=== PATIENT | female | born 1965 ===

== ENCOUNTER 2017-07-10 08:52 | Observation (INO) | payer OTHER ==
[2017-07-10 09:02] VITALS: BMI 25.0
[2017-07-10] MEDS ORDERED: Sodium Chloride 0.9% 1,000 ML IV STA (09:22)
--- NOTE | 2017-07-10 09:24 | ED PDOC ---
HPI: Abdomen Time Seen by Provider: 07/10/17 09:07 Chief Complaint (Nursing): Dizziness/Lightheaded Chief Complaint (Provider): Abdominal Pain History Per: Patient History/Exam Limitations: no limitations Onset/Duration Of Symptoms: Hrs Additional Complaint(s): 52 year old female present to the ED complaining of constant abdominal pain associated with nausea since last night. Patient reports of pain radiating to right flank and right lower abdominal pain. Denies fever, vomiting, diarrhea, chest pain, shortness of breath, and genitourinary symptoms. Past Medical History Reviewed: Historical Data, Nursing Documentation, Vital Signs Vital Signs: Last Vital Signs Temp 98 F 07/10/17 09:01 Pulse 65 07/10/17 09:01 Resp BP 139/75 07/10/17 09:01 Pulse Ox 100 07/10/17 11:21 - Medical History PMH: No Chronic Diseases - Surgical History Surgical History: - Family History Family History: States: Unknown Family Hx - Social History Current smoker - smoking cessation education provided: No Alcohol: None Drugs: Denies - Immunization History Hx Tetanus Toxoid Vaccination: No Hx Influenza Vaccination: No Hx Pneumococcal Vaccination: No - Home Medications Home Medications: Ambulatory Orders Medication Instructions Recorded Ibuprofen [Motrin] 600 mg PO Q6 #30 tab 06/25/14 diaZEpam [Valium] 5 mg PO Q8 #12 tab 06/25/14 - Allergies Allergies/Adverse Reactions: Allergies Allergy/AdvReac Type Severity Reaction Status Date / Time No Known Allergies Allergy Unverified 06/25/14 20:56 Review of Systems ROS Statement: Except As Marked, All Systems Reviewed And Found Negative Constitutional: Negative for: Fever Cardiovascular: Negative for: Chest Pain Respiratory: Negative for: Shortness of Breath Gastrointestinal: Positive for: Nausea, Abdominal Pain. Negative for: Vomiting , Diarrhea Genitourinary Female: Negative for: Dysuria, Frequency, Incontinence, Hematuria , Vaginal Discharge, Vaginal Bleeding, Pelvic Pain, Rash Physical Exam - Reviewed Nursing Documentation Reviewed: Yes Vital Signs Reviewed: Yes - Physical Exam Appears: Positive for: Non-toxic, In Acute Distress (moderate painful distress) Head Exam: Positive for: ATRAUMATIC, NORMOCEPHALIC Skin: Positive for: Normal Color, Warm, Dry Eye Exam: Positive for: Normal appearance, EOMI, PERRL ENT: Positive for: Normal ENT Inspection Neck: Positive for: Normal, Painless ROM, Supple Cardiovascular/Chest: Positive for: Regular Rate, Rhythm. Negative for: Murmur Respiratory: Positive for: Normal Breath Sounds. Negative for: Respiratory Distress Gastrointestinal/Abdominal: Positive for: Normal Exam, Soft, Tenderness ( epigastric tenderness ) Back: Positive for: Normal Inspection. Negative for: L CVA Tenderness, R CVA Tenderness, Vertebral Tenderness Extremity: Positive for: Normal ROM. Negative for: Pedal Edema, Deformity Neurologic/Psych: Positive for: Alert, Oriented. Negative for: Motor/Sensory Deficits - Laboratory Results Result Diagrams: 07/10/17 09:30 07/10/17 09:30 - ECG Interpretation Of ECG: NSR @ 67, no ST-T changes. O2 Sat by Pulse Oximetry: 100 (RA) Pulse Ox Interpretation: Normal Medical Decision Making Medical Decision Making: Time: 924 Impression: Epigastric Pain Differential include but are not limited to Gastritis, colitis, kidney stone, etc. Plan: -- CT Abd & Pelvis /o contrast -- EKG -- CMP -- Lipase -- ED Urine Dipstick -- CBC with differentials -- PTT -- Prothrombin Time -- Glucose, POC -- Morphine 2 mg IV -- Sodium Chloride IV 1000 mls/hr -- Zofram 4 mg PO -- Urinalysis Time: 1102 -- Case discussed with director surgical Time: 1105 ABD/PELVIS CT RESULTS FINDINGS: LOWER THORAX: No evidence of acute pathology. LIVER: Unremarkable. No gross lesion or ductal dilatation. GALLBLADDER AND BILE DUCTS: Unremarkable. PANCREAS: Unremarkable. No gross lesion or ductal dilatation. SPLEEN: Unremarkable. ADRENALS: Unremarkable. No mass. KIDNEYS AND URETERS: Unremarkable. No hydronephrosis. No solid mass. VASCULATURE: Unremarkable. No aortic aneurysm. BOWEL: Colonic diverticulosis are noted without evidence of diverticulitis. . No obstruction. No gross mural thickening. APPENDIX: The appendix is enlarged demonstrate diffuse wall thickening surrounding with inflammatory changes and trace fluid consistent with acute appendicitis the appendix is noted at high position adjacent to the inferior pole of the right kidney. There is no evidence of discrete abscess formation. PERITONEUM: No evidence of ascites or free air. LYMPH NODES: Unremarkable. No enlarged lymph nodes. BLADDER: Mild urinary bladder wall thickening is noted. REPRODUCTIVE: Unremarkable. BONES: No acute fracture. OTHER FINDINGS: None. IMPRESSION: Findings consistent with acute appendicitis. No evidence of abscess formation or free air. No evidence of nephrolithiasis or hydronephrosis. Time: 1110 -- Patient will be brought to OR immediately for appendectomy. Scribe Attestation: Documented by Darryl Reyez, acting as a scribe for Dr. Glenda Mcclelland MD. Provider Scribe Attestation: All medical record entries made by the Scribe were at my direction and personally dictated by me. I have reviewed the chart and agree that the record accurately reflects my personal performance of the history, physical exam, medical decision making, and the department course for this patient. I have also personally directed, reviewed, and agree with the discharge instructions and disposition. Disposition - Clinical Impression Clinical Impression: Appendicitis - Patient ED Disposition Is Patient to be Admitted: Yes - Disposition Disposition Time: 11:02 Condition: STABLE Forms: [employer] ([employer]) - Pt Status Changed To: Hospital Disposition Of: Inpatient - Admit Certification Admit to Inpatient:: After my assessment, the patient will require hospitalization for at least two midnights. This is because of the severity of symptoms shown, intensity of services needed, and/or the medical risk in this patient being treated as an outpatient. - POA Present On Arrival: None
[2017-07-10 09:49] LABS: BASO # 0.1 K/uL (0.0-0.2); BASO % 0.6 % (0.0-2.0); EOS % 0.3 % (0.0-4.0); HEMOGLOBIN 13.4 g/dL (12.0-16.0); LYMPH # 2.4 K/uL (1.0-4.3); LYMPH % 20.6 % (20.0-40.0); MEAN CELL VOLUME 89.5 fl (81.0-99.0); MEAN CORPUSCULAR HEMOGLOBIN 30.2 pg (27.0-31.0); MEAN CORPUSCULAR HGB CONC 33.8 g/dL (33.0-37.0); MEAN PLATELET VOLUME 8.3 fl (7.2-11.7); MONO # 0.6 K/uL (0.0-0.8); MONO % 5.2 % (0.0-10.0); NEUT # 8.6 K/uL (1.8-7.0); NEUT % 73.3 % (50.0-75.0); NRBC % 0.1 % (0.0-0.0); RBC 4.44 Mil/uL (3.80-5.20); RED CELL DISTRIBUTION WIDTH 13.7 % (11.5-14.5); WHITE BLOOD COUNT 11.7 K/uL (4.8-10.8)
[2017-07-10 09:56] LABS: ALB/GLOB RATIO 1.2 (1.0-2.1); ALBUMIN 4.3 g/dL (3.5-5.0); ALT/SGPT 31 U/L (9-52); AST/SGOT 30 U/L (14-36); BLOOD UREA NITROGEN 14 mg/dl (7-17); CALCIUM 9.9 mg/dL (8.4-10.2); GFR AFRICAN-AMERICAN > 60; GFR NON-AFRICAN AMERICAN > 60; LIPASE 52 U/L (23-300)
[2017-07-10 10:14] LABS: PARTIAL THROMBOPLASTIN TIME 34.3 Seconds (25.6-37.1); PROTHROMBIN TIME 10.5 Seconds (9.8-13.1)
[2017-07-10] MEDS ORDERED: Belladonna-Phenobarbital PO STA (10:28)
[2017-07-10] MEDS ORDERED: Alum-Mag Hydrox-Simethicone Susp (30 mL) PO STA (10:28)
[2017-07-10 10:59] LABS: SQUAMOUS EPITHIAL 1 /hpf (0-5); URINE BILIRUBIN NEGATIVE (NEGATIVE); URINE BLOOD SMALL (NEGATIVE); URINE CLARITY CLEAR (Clear); URINE COLOR STRAW (YELLOW); URINE GLUCOSE (UA) NEG (Normal); URINE LEUKOCYTE ESTERASE NEG Leu/uL (Negative); URINE PROTEIN NEGATIVE (NEGATIVE); URINE UROBILINOGEN 0.2-1.0 mg/dL (0.2-1.0)
[2017-07-10] MEDS ORDERED: Piperacillin/Tazobact 4.5 GM in Sodium Chloride 0.9% 100 ML IVPB STA (11:01)
--- NOTE | 2017-07-10 11:06 | CT ---
PROCEDURE: CT Abdomen and Pelvis without intravenous contrast HISTORY: Epigastric, R flank pain COMPARISON: Comparison is made with the previous study dated 04/29/2012 TECHNIQUE: Axial and reformatted coronal and sagittal CT images of the abdomen and pelvis were obtained without IV or oral contrast administration.. Contrast dose: 0 IV contra Radiation dose: Total exam DLP = 574.12 mGy-cm. This CT exam was performed using one or more of the following dose reduction techniques: Automated exposure control, adjustment of the mA and/or kV according to patient size, and/or use of iterative reconstruction technique. FINDINGS: LOWER THORAX: No evidence of acute pathology. LIVER: Unremarkable. No gross lesion or ductal dilatation. GALLBLADDER AND BILE DUCTS: Unremarkable. PANCREAS: Unremarkable. No gross lesion or ductal dilatation. SPLEEN: Unremarkable. ADRENALS: Unremarkable. No mass. KIDNEYS AND URETERS: Unremarkable. No hydronephrosis. No solid mass. VASCULATURE: Unremarkable. No aortic aneurysm. BOWEL: Colonic diverticulosis are noted without evidence of diverticulitis. . No obstruction. No gross mural thickening. APPENDIX: The appendix is enlarged demonstrate diffuse wall thickening surrounding with inflammatory changes and trace fluid consistent with acute appendicitis the appendix is noted at high position adjacent to the inferior pole of the right kidney. There is no evidence of discrete abscess formation. PERITONEUM: No evidence of ascites or free air. LYMPH NODES: Unremarkable. No enlarged lymph nodes. BLADDER: Mild urinary bladder wall thickening is noted. REPRODUCTIVE: Unremarkable. BONES: No acute fracture. OTHER FINDINGS: None. IMPRESSION: Findings consistent with acute appendicitis. No evidence of abscess formation or free air. No evidence of nephrolithiasis or hydronephrosis.
--- NOTE | 2017-07-10 11:27 | CP.PCM.CON ---
History of Present Illness - History of Present Illness History of Present Illness: Surgery- Dr. Patino 52F w/ no significant pmhx presents to [facility] with sharp epigastric abdominal pain localized to RLQ that started on 2 days ago. Associated nausea, no vomiting , and no bowel movements. Patient has never had similar pain before. Denies recent sick contacts or foreign travel. Last meal yesterday evening, with milk and water this morning. Denies: Fevers, chills chest pain, shortness of breath, changes in urinary habits PMH: Denies PSH: x2 ALL: NKDA Socialhx: former tobacco use, quit 5+ years ago, denies EOTH, recreational drug use FH: non-contributory 12pt ROS conducted, negative otherwise noted above Review of Systems - Review of Systems All systems: reviewed and no additional remarkable complaints except - Constitutional Constitutional: As Per HPI Past Patient History - Past Social History Alcohol: None Drugs: Denies - PSYCHIATRIC Hx Substance Use: No - ANESTHESIA Hx Anesthesia: No Meds Allergies/Adverse Reactions: Allergies Allergy/AdvReac Type Severity Reaction Status Date / Time No Known Allergies Allergy Unverified 06/25/14 20:56 - Medications Medications: Current Medications Piperacillin Sod/Tazobactam (Sod 4.5 gm/ Sodium Chloride) 100 mls @ 100 mls/hr IVPB STAT STA PRN Reason: Protocol Stop: 07/10/17 12:00 Last Admin: 07/10/17 11:17 Dose: 100 mls/hr Physical Exam - Constitutional Appears: Non-toxic, No Acute Distress - Head Exam Head Exam: ATRAUMATIC - Eye Exam Eye Exam: EOMI. absent: Scleral icterus - ENT Exam ENT Exam: Mucous Membranes Moist - Respiratory Exam Respiratory Exam: NORMAL BREATHING PATTERN. absent: Accessory Muscle Use, Respiratory Distress - Cardiovascular Exam Cardiovascular Exam: +S1, +S2. absent: Bradycardia, Tachycardia - GI/Abdominal Exam GI & Abdominal Exam: Guarding, Rebound, Soft, Tenderness (RLQ). absent: Firm, Hernia, Rigid - Neurological Exam Neurological exam: Alert, Oriented x3 - Psychiatric Exam Psychiatric exam: Normal Affect - Skin Skin Exam: Intact, Warm Results - Vital Signs Recent Vital Signs: Last Vital Signs Temp 98 F 07/10/17 09:01 Pulse 65 07/10/17 09:01 Resp BP 139/75 07/10/17 09:01 Pulse Ox 100 07/10/17 11:23 - Labs Result Diagrams: 07/10/17 09:30 07/10/17 09:30 Labs: Laboratory Results - last 24 hr 07/10/17 07/10/17 07/10/17 09:15 09:30 09:30 WBC 11.7 H RBC 4.44 Hgb 13.4 Hct 39.8 MCV 89.5 MCH 30.2 MCHC 33.8 RDW 13.7 Plt Count 257 MPV 8.3 Neut % (Auto) 73.3 Lymph % (Auto) 20.6 [place] % (Auto) 5.2 Eos % (Auto) 0.3 Baso % (Auto) 0.6 Neut # (Auto) 8.6 H Lymph # (Auto) 2.4 [place] # (Auto) 0.6 Eos # (Auto) 0.0 Baso # (Auto) 0.1 PT INR APTT Sodium 138 Potassium 4.0 Chloride 100 Carbon Dioxide 22 Anion Gap 20 BUN 14 Creatinine 0.7 Est GFR ( Amer) > 60 Est GFR (Non-Af Amer) > 60 POC Glucose (mg/dL) 140 H Random Glucose 151 H Calcium 9.9 Total Bilirubin 0.6 AST 30 ALT 31 Alkaline Phosphatase 97 Total Protein 8.0 Albumin 4.3 Globulin 3.7 Albumin/Globulin Ratio 1.2 Lipase 52 Urine Color Urine Clarity Urine pH Ur Specific [place] Urine Protein Urine Glucose (UA) Urine Ketones Urine Blood Urine Nitrate Urine Bilirubin Urine Urobilinogen Ur Leukocyte Esterase Urine Microscopic WBC Ur Squamous Epith Cells 07/10/17 07/10/17 09:30 10:30 WBC RBC Hgb Hct MCV MCH MCHC RDW Plt Count MPV Neut % (Auto) Lymph % (Auto) [place] % (Auto) Eos % (Auto) Baso % (Auto) Neut # (Auto) Lymph # (Auto) [place] # (Auto) Eos # (Auto) Baso # (Auto) PT 10.5 INR 1.0 APTT 34.3 Sodium Potassium Chloride Carbon Dioxide Anion Gap BUN Creatinine Est GFR ( Amer) Est GFR (Non-Af Amer) POC Glucose (mg/dL) Random Glucose Calcium Total Bilirubin AST ALT Alkaline Phosphatase Total Protein Albumin Globulin Albumin/Globulin Ratio Lipase Urine Color Straw Urine Clarity Clear Urine pH 8.0 Ur Specific [place] 1.006 Urine Protein Negative Urine Glucose (UA) Neg Urine Ketones Negative Urine Blood Small Urine Nitrate Negative Urine Bilirubin Negative Urine Urobilinogen 0.2-1.0 Ur Leukocyte Esterase Neg Urine Microscopic WBC < 1 Ur Squamous Epith Cells 1 Assessment & Plan - Assessment and Plan (Free Text) Assessment: 52F w/ acute appendicitis Plan: NPO IVF/Abx anti-emetic and pain control PRN plan for appendectomy today discussed w/ Dr. Patino surgical attending [facility] PGY1
[2017-07-10] MEDS ORDERED: Sodium Chloride 0.9% 1,000 ML IV SCH (11:30)
--- NOTE | 2017-07-10 11:32 | CP.PCM.HP ---
History of Present Illness - History of Present Illness History of Present Illness: 52 yo female with no significant PMH complained of persistent abdominal pain associated with nausea since 3 days ago. Abdominal pain, felt more over the epigastric region, waxed and wane, but becoming more intense and constant lately. Denied fever, vomiting or diarrhea. Also denied dysuria or low back pain. Present on Admission - Present on Admission Any Indicators Present on Admission: No History of DVT/PE: No History of Uncontrolled Diabetes: No Urinary Catheter: No Decubitus Ulcer Present: No Review of Systems - Review of Systems All systems: reviewed and no additional remarkable complaints except (aside from those mentioned above, 12 point system review were negative by me) Past Patient History - Tetanus Immunizations Tetanus Immunization: Unknown - Past Medical History & Family History Past Medical History?: No Past Family History: Reviewed and not pertinent - Past Social History Smoking Status: Former Smoker Chewing Tobacco Use: No Cigar Use: No Alcohol: None Drugs: Denies Home Situation {Lives}: With Family - CARDIAC Hx Cardiac Disorders: No - PULMONARY Hx Respiratory Disorders: No - NEUROLOGICAL Hx Neurological Disorder: No - HEENT Hx HEENT Problems: No - RENAL Hx Chronic Kidney Disease: No - ENDOCRINE/METABOLIC Hx Endocrine Disorders: No - HEMATOLOGICAL/ONCOLOGICAL Hx Blood Disorders: No - INTEGUMENTARY Hx Dermatological Problems: No - MUSCULOSKELETAL/RHEUMATOLOGICAL Hx Musculoskeletal Disorders: No - GASTROINTESTINAL Hx Gastrointestinal Disorders: No - GENITOURINARY/GYNECOLOGICAL Hx Genitourinary Disorders: No - PSYCHIATRIC Hx Psychophysiologic Disorder: No Hx Substance Use: No - SURGICAL HISTORY Hx Surgeries: Yes Hx Section: Yes - ANESTHESIA Hx Anesthesia: No Meds Allergies/Adverse Reactions: Allergies Allergy/AdvReac Type Severity Reaction Status Date / Time No Known Allergies Allergy Unverified 06/25/14 20:56 Physical Exam - Constitutional Appears: No Acute Distress - Head Exam Head Exam: ATRAUMATIC - Eye Exam Eye Exam: absent: Scleral icterus - ENT Exam ENT Exam: Mucous Membranes Moist - Neck Exam Neck exam: Negative for: Meningismus - Respiratory Exam Respiratory Exam: absent: Rales, Rhonchi, Wheezes, Respiratory Distress - Cardiovascular Exam Cardiovascular Exam: REGULAR RHYTHM, +S1, +S2 - GI/Abdominal Exam GI & Abdominal Exam: Soft, Tenderness (tenderness over epigastric region on palpation). absent: Guarding, Rebound, Rigid - Rectal Exam Rectal Exam: Deferred - Extremities Exam Extremities exam: Negative for: calf tenderness, pedal edema - Back Exam Back exam: absent: tenderness - Neurological Exam Neurological exam: Alert, Oriented x3 - Psychiatric Exam Psychiatric exam: Normal Affect - Skin Skin Exam: Dry, Intact Results - Vital Signs Recent Vital Signs: Last Vital Signs Temp 98 F 07/10/17 09:01 Pulse 65 07/10/17 09:01 Resp BP 139/75 07/10/17 09:01 Pulse Ox 100 07/10/17 11:23 - Labs Result Diagrams: 07/10/17 09:30 07/10/17 09:30 Labs: Laboratory Results - last 24 hr 07/10/17 07/10/17 07/10/17 09:15 09:30 09:30 WBC 11.7 H RBC 4.44 Hgb 13.4 Hct 39.8 MCV 89.5 MCH 30.2 MCHC 33.8 RDW 13.7 Plt Count 257 MPV 8.3 Neut % (Auto) 73.3 Lymph % (Auto) 20.6 [place] % (Auto) 5.2 Eos % (Auto) 0.3 Baso % (Auto) 0.6 Neut # (Auto) 8.6 H Lymph # (Auto) 2.4 [place] # (Auto) 0.6 Eos # (Auto) 0.0 Baso # (Auto) 0.1 PT INR APTT Sodium 138 Potassium 4.0 Chloride 100 Carbon Dioxide 22 Anion Gap 20 BUN 14 Creatinine 0.7 Est GFR ( Amer) > 60 Est GFR (Non-Af Amer) > 60 POC Glucose (mg/dL) 140 H Random Glucose 151 H Calcium 9.9 Total Bilirubin 0.6 AST 30 ALT 31 Alkaline Phosphatase 97 Total Protein 8.0 Albumin 4.3 Globulin 3.7 Albumin/Globulin Ratio 1.2 Lipase 52 Urine Color Urine Clarity Urine pH Ur Specific [place] Urine Protein Urine Glucose (UA) Urine Ketones Urine Blood Urine Nitrate Urine Bilirubin Urine Urobilinogen Ur Leukocyte Esterase Urine Microscopic WBC Ur Squamous Epith Cells 07/10/17 07/10/17 09:30 10:30 WBC RBC Hgb Hct MCV MCH MCHC RDW Plt Count MPV Neut % (Auto) Lymph % (Auto) [place] % (Auto) Eos % (Auto) Baso % (Auto) Neut # (Auto) Lymph # (Auto) [place] # (Auto) Eos # (Auto) Baso # (Auto) PT 10.5 INR 1.0 APTT 34.3 Sodium Potassium Chloride Carbon Dioxide Anion Gap BUN Creatinine Est GFR ( Amer) Est GFR (Non-Af Amer) POC Glucose (mg/dL) Random Glucose Calcium Total Bilirubin AST ALT Alkaline Phosphatase Total Protein Albumin Globulin Albumin/Globulin Ratio Lipase Urine Color Straw Urine Clarity Clear Urine pH 8.0 Ur Specific [place] 1.006 Urine Protein Negative Urine Glucose (UA) Neg Urine Ketones Negative Urine Blood Small Urine Nitrate Negative Urine Bilirubin Negative Urine Urobilinogen 0.2-1.0 Ur Leukocyte Esterase Neg Urine Microscopic WBC < 1 Ur Squamous Epith Cells 1 Assessment & Plan - Assessment and Plan (Free Text) Assessment: 52 yo female with no significant PMH complained of persistent abdominal pain associated with nausea since 3 days ago. Abdominal pain, felt more over the epigastric region, waxed and wane, but becoming more intense and constant lately. Denied fever, vomiting or diarrhea. Also denied dysuria or low back pain. 1. Acute Appendicitis CT scan of abdomen: enlarged appendix with diffuse wall thickening sorrounded with inflammatory changes patient medically cleared as low surgically risk for surgery Dr Patino on consult keep NPO IV started with NSS 100cc/hr
[2017-07-10] MEDS ORDERED: Midazolam 2 MG/2 ML VIAL ONE (11:42)
[2017-07-10] MEDS ORDERED: Propofol 10 mg/ml Inj (20 ML) ONE (11:42)
[2017-07-10] MEDS ORDERED: Rocuronium 10 mg/ml (5 ml) ONE (11:42)
[2017-07-10] MEDS ORDERED: Lidocaine 4% (Laryng-O-Jet) Kit MM ONE (11:42)
[2017-07-10] MEDS ORDERED: Bupivacaine HCl 0.25% PF (10 ml) Inj ONE (11:44)
[2017-07-10] MEDS ORDERED: Lactated Ringer's 1,000 ML IV ONE ×3 (11:50→12:30)
[2017-07-10] MEDS ORDERED: Sevoflurane - Inhalation Anesthetic Liq (250 ml) ONE (12:05)
[2017-07-10] MEDS ORDERED: Succinylcholine 200 mg/10 ml Inj IV ONE (12:15)
--- NOTE | 2017-07-10 12:24 | RAD ---
HISTORY: Admission COMPARISON: No prior. FINDINGS: LUNGS: No active pulmonary disease. PLEURA: No significant pleural effusion identified, no pneumothorax apparent. CARDIOVASCULAR: Normal. OSSEOUS STRUCTURES: No significant abnormalities. VISUALIZED UPPER ABDOMEN: Normal. OTHER FINDINGS: None. IMPRESSION: No active disease.
[2017-07-10] MEDS ORDERED: Neostigmine 1:1000 (1 mg/ml) Inj ONE (12:42)
[2017-07-10] MEDS ORDERED: Bupivacaine HCl 0.25% PF (10 ml) Inj IJ ONE (12:50)
[2017-07-10] MEDS ORDERED: HYDROmorphone 0.5 mg/0.5 ml ISec IVP PRN (13:09)
--- NOTE | 2017-07-10 13:30 | PCM.SURG1 ---
Surgeon's Initial Post Op Note - Surgeon's Notes Surgeon: Dr. Patino District Operations Manager: PGY1 Type of Anesthesia: General Endo Pre-Operative Diagnosis: Acute appendicitis Operative Findings: retrocecal inflammed appendix. Fluid in pelvis and colic gutter. for details see op note Post-Operative Diagnosis: as above Operation Performed: laparoscopic appendectomy Specimen/Specimens Removed: appendix Estimated Blood Loss: EBL {In ML}: 25 Blood Products Given: N/A Drains Used: No Drains Date of Surgery/Procedure: 07/10/17 Time of Surgery/Procedure: 11:50
[2017-07-10] MEDS: Sodium Chloride 0.9% 1,000 ML IV SCH (14:47)
[2017-07-10] MEDS: Piperacillin/Tazobact 3.375 GM in Sodium Chloride 0.9% 100 ML IVPB SCH ×2 (16:44→21:59)
[2017-07-10] MEDS: Oxycodone/Acetaminophen 5/325 mg Tab PO PRN (18:21)
[2017-07-11] MEDS: Sodium Chloride 0.9% 1,000 ML IV SCH ×2 (02:24→02:25)
[2017-07-11] MEDS: Piperacillin/Tazobact 3.375 GM in Sodium Chloride 0.9% 100 ML IVPB SCH ×2 (03:48→09:13)
[2017-07-11 06:26] LABS: BASO % 0.3 % (0.0-2.0); EOS % 0.7 % (0.0-4.0); LYMPH # 2.3 K/uL (1.0-4.3); LYMPH % 32.1 % (20.0-40.0); MEAN CELL VOLUME 90.6 fl (81.0-99.0); MEAN CORPUSCULAR HGB CONC 34.2 g/dL (33.0-37.0); MEAN PLATELET VOLUME 7.8 fl (7.2-11.7); MONO # 0.5 K/uL (0.0-0.8); MONO % 6.8 % (0.0-10.0); NEUT # 4.3 K/uL (1.8-7.0); NEUT % 60.1 % (50.0-75.0); RBC 3.39 Mil/uL (3.80-5.20); RED CELL DISTRIBUTION WIDTH 14.1 % (11.5-14.5); WHITE BLOOD COUNT 7.2 K/uL (4.8-10.8)
[2017-07-11 06:32] LABS: HEMOGLOBIN 10.5 g/dL (12.0-16.0)
[2017-07-11 06:44] LABS: BLOOD UREA NITROGEN 8 mg/dl (7-17); CALCIUM 7.8 mg/dL (8.4-10.2); GFR AFRICAN-AMERICAN > 60; GFR NON-AFRICAN AMERICAN > 60
[2017-07-11] MEDS: Oxycodone/Acetaminophen 5/325 mg Tab PO PRN (06:49)
[2017-07-11 06:50] VITALS: TEMP 98.4
[2017-07-11 08:16] VITALS: BP 95/59; PULSE 60; RESP 18; O2SAT 95
--- NOTE | 2017-07-11 09:15 | CP.PCM.PN ---
Subjective - Date & Time of Evaluation Date of Evaluation: 07/11/17 Time of Evaluation: 09:10 - Subjective Subjective: Pt seen and examined this AM. She reports she feels a little dizzy since taking the percocet. Sheis tolerating a regular diet. (-) N/V. (-) BM, (+) flatus. Afebrile. Labs and vitals noted. PE: Gen: Laying in bed eating breakfast in NAD Skin: Warm and dry Cardio: S1S2 RRR Lungs: CTA bilaterally Abd: Soft, appropriately tender near incision sites. Extremities: (-) calf tenderness, (-) edema A/P POD 1 s/p lap appendectomy tolerating diet pain management as ordered prn Pt is discharged from surgery Pt told to follow up in office in 10-[address] Patino. Objective - Vital Signs/Intake and Output Vital Signs (last 24 hours): Temp Pulse Resp BP Pulse Ox 98.4 F 60 18 95/59 L 95 07/11/17 08:15 07/11/17 08:15 07/11/17 08:15 07/11/17 08:15 07/11/17 08:15 - Medications Medications: Current Medications Acetaminophen (Tylenol 325mg Tab) 650 mg PO Q4 PRN PRN Reason: Fever >100.4 F Sodium Chloride (Sodium Chloride 0.9%) 1,000 mls @ 150 mls/hr IV .Q6H40M [facility] Last Admin: 07/11/17 02:25 Dose: 150 mls/hr Piperacillin Sod/Tazobactam (Sod 3.375 gm/ Sodium Chloride) 100 mls @ 100 mls/ hr IVPB Q6 [facility] PRN Reason: Protocol Stop: 07/11/17 10:59 Last Admin: 07/11/17 03:48 Dose: 100 mls/hr Ketorolac Tromethamine (Toradol) 15 mg IVP Q6 [facility] Stop: 07/11/17 16:01 Last Admin: 07/11/17 03:48 Dose: 15 mg Morphine Sulfate (Morphine) 2 mg IVP Q4 PRN PRN Reason: Pain, moderate (4-7) Last Admin: 07/10/17 13:54 Dose: 2 mg Ondansetron HCl (Zofran Inj) 4 mg IVP Q4 PRN PRN Reason: Nausea/Vomiting Last Admin: 07/10/17 14:03 Dose: 4 mg Oxycodone/Acetaminophen (Percocet 5/325 Mg Tab) 1 tab PO Q4 PRN PRN Reason: Pain, moderate (4-7) Stop: 07/13/17 11:30 Last Admin: 07/11/17 06:49 Dose: 1 tab - Labs Labs: 07/11/17 05:35 07/11/17 05:35 PT 10.5 Seconds (9.8-13.1) 07/10/17 09:30 INR 1.0 (0.9-1.2) 07/10/17 09:30 APTT 34.3 Seconds (25.6-37.1) 07/10/17 09:30 Assessment and Plan - Assessment and Plan (Free Text) Assessment: see above
--- NOTE | 2017-07-11 10:15 | CP.PCM.PN ---
Subjective - Date & Time of Evaluation Date of Evaluation: 07/11/17 Time of Evaluation: 07:00 - Subjective Subjective: Surgery Progress note. Dr. Tavera Pt seen and examined at bedside. No acute events overnight. Abdominal pain improving. No N/V/D. Does report flatus. No F/C. No new complaints. Objective - Vital Signs/Intake and Output Vital Signs (last 24 hours): Temp Pulse Resp BP Pulse Ox 98.4 F 60 18 95/59 L 95 07/11/17 08:15 07/11/17 08:15 07/11/17 08:15 07/11/17 08:15 07/11/17 08:15 - Medications Medications: Current Medications Acetaminophen (Tylenol 325mg Tab) 650 mg PO Q4 PRN PRN Reason: Fever >100.4 F Sodium Chloride (Sodium Chloride 0.9%) 1,000 mls @ 150 mls/hr IV .Q6H40M [facility] Last Admin: 07/11/17 02:25 Dose: 150 mls/hr Piperacillin Sod/Tazobactam (Sod 3.375 gm/ Sodium Chloride) 100 mls @ 100 mls/ hr IVPB Q6 [facility] PRN Reason: Protocol Stop: 07/11/17 10:59 Last Admin: 07/11/17 09:13 Dose: 100 mls/hr Ketorolac Tromethamine (Toradol) 15 mg IVP Q6 [facility] Stop: 07/11/17 16:01 Last Admin: 07/11/17 09:12 Dose: 15 mg Morphine Sulfate (Morphine) 2 mg IVP Q4 PRN PRN Reason: Pain, moderate (4-7) Last Admin: 07/10/17 13:54 Dose: 2 mg Ondansetron HCl (Zofran Inj) 4 mg IVP Q4 PRN PRN Reason: Nausea/Vomiting Last Admin: 07/10/17 14:03 Dose: 4 mg Oxycodone/Acetaminophen (Percocet 5/325 Mg Tab) 1 tab PO Q4 PRN PRN Reason: Pain, moderate (4-7) Stop: 07/13/17 11:30 Last Admin: 07/11/17 06:49 Dose: 1 tab - Labs Labs: 07/11/17 05:35 07/11/17 05:35 PT 10.5 Seconds (9.8-13.1) 07/10/17 09:30 INR 1.0 (0.9-1.2) 07/10/17 09:30 APTT 34.3 Seconds (25.6-37.1) 07/10/17 09:30 - Constitutional Appears: Well, Non-toxic, No Acute Distress - Head Exam Head Exam: ATRAUMATIC, NORMAL INSPECTION, NORMOCEPHALIC - Eye Exam Eye Exam: EOMI, Normal appearance - ENT Exam ENT Exam: Mucous Membranes Moist - Respiratory Exam Respiratory Exam: NORMAL BREATHING PATTERN. absent: Accessory Muscle Use, Respiratory Distress - Cardiovascular Exam Cardiovascular Exam: RRR. absent: JVD - GI/Abdominal Exam GI & Abdominal Exam: Soft. absent: Distended, Firm, Guarding, Rigid, Rebound Additional comments: mild tenderness to palpation darrius-incisional region. - Extremities Exam Extremities Exam: Normal Inspection. absent: Calf Tenderness - Neurological Exam Neurological Exam: Alert, Awake, Oriented x3 - Psychiatric Exam Psychiatric exam: Normal Affect, Normal Mood - Skin Skin Exam: Dry, Intact, Normal Color, Warm Assessment and Plan - Assessment and Plan (Free Text) Assessment: 52yo F s/p Lap Appy. POD1 Plan: - Pain management - Cleared for discharge from surgical standpoint - Follow up with Dr. Patino in office in 10-14 days. Call for appointment Further recs as per Dr. Ayse Luna PGY1 surgery pager: [phone]
[2017-07-11] MEDS ORDERED: Sodium Chloride 0.9% 500 ML IV ONE (11:19)
--- NOTE | 2017-07-11 11:25 | CP.PCM.DIS ---
Provider - Provider Date of Admission: 07/10/17 11:39 Attending physician: Oniel Shaw MD Time Spent in preparation of Discharge (in minutes): 30 Hospital Course - Lab Results Lab Results: Most Recent Lab Values WBC 7.2 K/uL (4.8-10.8) 07/11/17 05:35 RBC 3.39 Mil/uL (3.80-5.20) L 07/11/17 05:35 Hgb 10.5 g/dL (12.0-16.0) L D 07/11/17 05:35 Hct 30.7 % (34.0-47.0) L 07/11/17 05:35 MCV 90.6 fl (81.0-99.0) 07/11/17 05:35 MCH 31.0 pg (27.0-31.0) 07/11/17 05:35 MCHC 34.2 g/dL (33.0-37.0) 07/11/17 05:35 RDW 14.1 % (11.5-14.5) 07/11/17 05:35 Plt Count 196 K/uL (130-400) 07/11/17 05:35 MPV 7.8 fl (7.2-11.7) 07/11/17 05:35 Neut % (Auto) 60.1 % (50.0-75.0) 07/11/17 05:35 Lymph % (Auto) 32.1 % (20.0-40.0) 07/11/17 05:35 [place] % (Auto) 6.8 % (0.0-10.0) 07/11/17 05:35 Eos % (Auto) 0.7 % (0.0-4.0) 07/11/17 05:35 Baso % (Auto) 0.3 % (0.0-2.0) 07/11/17 05:35 Neut # (Auto) 4.3 K/uL (1.8-7.0) 07/11/17 05:35 Lymph # (Auto) 2.3 K/uL (1.0-4.3) 07/11/17 05:35 [place] # (Auto) 0.5 K/uL (0.0-0.8) 07/11/17 05:35 Eos # (Auto) 0.0 K/uL (0.0-0.7) 07/11/17 05:35 Baso # (Auto) 0.0 K/uL (0.0-0.2) 07/11/17 05:35 PT 10.5 Seconds (9.8-13.1) 07/10/17 09:30 INR 1.0 (0.9-1.2) 07/10/17 09:30 APTT 34.3 Seconds (25.6-37.1) 07/10/17 09:30 Sodium 139 mmol/l (132-148) 07/11/17 05:35 Potassium 3.6 MMOL/L (3.6-5.0) 07/11/17 05:35 Chloride 109 mmol/L (98-107) H 07/11/17 05:35 Carbon Dioxide 24 mmol/L (22-30) 07/11/17 05:35 Anion Gap 10 (10-20) 07/11/17 05:35 BUN 8 mg/dl (7-17) 07/11/17 05:35 Creatinine 0.7 mg/dl (0.7-1.2) 07/11/17 05:35 Est GFR ( Amer) > 60 07/11/17 05:35 Est GFR (Non-Af Amer) > 60 07/11/17 05:35 POC Glucose (mg/dL) 140 mg/dL (65-110) H 07/10/17 09:15 Random Glucose 101 mg/dL (65-105) 07/11/17 05:35 Calcium 7.8 mg/dL (8.4-10.2) L 07/11/17 05:35 Total Bilirubin 0.6 mg/dl (0.2-1.3) 07/10/17 09:30 AST 30 U/L (14-36) 07/10/17 09:30 ALT 31 U/L (9-52) 07/10/17 09:30 Alkaline Phosphatase 97 U/L (38-126) 07/10/17 09:30 Total Protein 8.0 G/DL (6.3-8.2) 07/10/17 09:30 Albumin 4.3 g/dL (3.5-5.0) 07/10/17 09:30 Globulin 3.7 gm/dL (2.2-3.9) 07/10/17 09:30 Albumin/Globulin Ratio 1.2 (1.0-2.1) 07/10/17 09:30 Lipase 52 U/L (23-300) 07/10/17 09:30 Urine Color Straw (YELLOW) 07/10/17 10:30 Urine Clarity Clear (Clear) 07/10/17 10:30 Urine pH 8.0 (5.0-8.0) 07/10/17 10:30 Ur Specific [place] 1.006 (1.003-1.030) 07/10/17 10:30 Urine Protein Negative mg/dL (NEGATIVE) 07/10/17 10:30 Urine Glucose (UA) Neg mg/dL (Normal) 07/10/17 10:30 Urine Ketones Negative mg/dL (NEGATIVE) 07/10/17 10:30 Urine Blood Small (NEGATIVE) 07/10/17 10:30 Urine Nitrate Negative (NEGATIVE) 07/10/17 10:30 Urine Bilirubin Negative (NEGATIVE) 07/10/17 10:30 Urine Urobilinogen 0.2-1.0 mg/dL (0.2-1.0) 07/10/17 10:30 Ur Leukocyte Esterase Neg Travis/uL (Negative) 07/10/17 10:30 Urine Microscopic WBC < 1 /hpf (0-5) 07/10/17 10:30 Ur Squamous Epith Cells 1 /hpf (0-5) 07/10/17 10:30 - Hospital Course Hospital Course: 52 yo female with no significant PMH complained of persistent abdominal pain associated with nausea since 3 days ago. Abdominal pain, felt more over the epigastric region, waxed and wane, but becoming more intense and constant lately. Denied fever, vomiting or diarrhea. Also denied dysuria or low back pain. 1. Acute Appendicitis CT scan of abdomen: enlarged appendix with diffuse wall thickening sorrounded with inflammatory changes pt s/p appendectomy, doing well, tolerating diet, pain controlled, ambulating well. Dr Patino on consult, stable for discharge for follow up with PCP and surgery in one to two weeks. Discharge Exam - Head Exam Head Exam: ATRAUMATIC, NORMAL INSPECTION, NORMOCEPHALIC - Eye Exam Eye Exam: EOMI, Normal appearance Pupil Exam: NORMAL ACCOMODATION - ENT Exam ENT Exam: Mucous Membranes Moist, Normal Oropharynx - Respiratory Exam Respiratory Exam: Clear to PA & Lateral, NORMAL BREATHING PATTERN - Cardiovascular Exam Cardiovascular Exam: RRR, +S1, +S2 - GI/Abdominal Exam GI & Abdominal Exam: Normal Bowel Sounds, Soft. absent: Organomegaly - Extremities Exam Extremities exam: normal capillary refill, pedal pulses present - Back Exam Back exam: absent: CVA tenderness (L), CVA tenderness (R) - Neurological Exam Neurological exam: Alert, Oriented x3 - Psychiatric Exam Psychiatric exam: Normal Affect, Normal Mood - Skin Skin Exam: Dry, Warm Discharge Plan - Discharge Medications Prescriptions: oxyCODONE/Acetaminophen [Percocet 5/325 mg Tab] 1 tab PO Q4 PRN #20 tab PRN Reason: Pain, Moderate (4-7) - Follow Up Plan Condition: STABLE Disposition: HOME/ ROUTINE Instructions: Appendectomy, Laparoscopic Surgery (DC) Additional Instructions: hacer herbert con [facility] doctor primario y cirujano dentro de 1 semana. Referrals: Keith Patino MD [Staff Provider] -
--- NOTE | 2017-07-11 14:23 | CARD ---
APPROVED REPORT EKG Measurement Heart [id number] <Conclusion> Normal sinus rhythm Normal ECG
--- NOTE | 2017-08-01 21:12 | OP ---
PROCEDURE DATE: 07/10/2017 PREOPERATIVE DIAGNOSIS: Acute appendicitis. POSTOPERATIVE DIAGNOSIS: Acute appendicitis. OPERATION PERFORMED: Laparoscopic appendectomy. SURGEON: Dr. Keith Patino. 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 TYPE OF ANESTHESIA: General anesthesia. OPERATIVE FINDINGS: Retrocecal appendix. ESTIMATED BLOOD LOSS: Minimal. PREPARATION AND PROCEDURE: The patient was taken to the operating room and placed supine on the operating room table. After induction of general anesthesia, a John catheter was placed to decompress the bladder and the abdomen was prepped and draped in the standard surgical fashion. A Veress needle was inserted into the abdomen and the abdomen was insufflated. Once the abdomen was insufflated, a 5-mm trocar was placed through the umbilicus and a diagnostic laparoscopy was performed. The diagnostic laparoscopy revealed inflammation in the right lower quadrant. The patient was then placed into the Trendelenburg and left side down position, and a 5 mm suprapubic trocar as well as a 12 mm left-sided trocar were placed under direct vision. The appendix was then found at the base of the cecum, grasped, and pulled upwards. A window was made in the mesoappendix using the [place] dissector. Once the window was made in the mesoappendix, the Endo-KANWAL was fired across the appendix and the base of the appendix and cecum were severed. A second firing of the Endo-KANWAL using a vascular load was used to fire across the mesoappendix. Once the mesoappendix was severed, the appendix was placed into an EndoCatch bag. The patient then returned to the flat position. The area was inspected for hemostasis and there was no evidence of bleeding. The right lower quadrant was copiously irrigated and the irrigant was removed. The appendix was then removed via the 12 mm trocar site and the 12 mm trocar and the 5-mm trocars were removed under direct vision. The fascia of the 12 mm trocar site was reapproximated using #0 Vicryl and the skin incisions were closed using #4-0 Monocryl. The patient was then awakened from general anesthesia. The John catheter was removed. Sponges, instruments, and needle counts were all correct at the end of the case. Keith Patino MD
== END 2017-07-11 13:40 | disposition home or self-care (01) ==
LOC: H.ER 08:52 → H.ERHOLD 11:39 → H.MEDSURG1 15:40
DX: K35.80 Unspecified acute appendicitis (principal); Z87.891 Personal history of nicotine dependence
CPT/HCPCS: 36415; 44970; 71045; 74176; 80048; 80053; 81003; 82948; 83036; 83690; 85025; 85610; 85730; 88304; 93005; 96361; 96374; 96375; 99285; G0378; J0330; J1885; J2001; J2250; J2270; J2405; J2543; J2704; J2710; J3010; J7030; J7120

== ENCOUNTER 2018-03-28 13:41 | Emergency (ER) | payer OTHER ==
[2018-03-28 14:32] VITALS: BMI 26.6
[2018-03-28 14:33] VITALS: RESP 18
--- NOTE | 2018-03-28 15:40 | ED PDOC ---
HPI: Back Time Seen by Provider: 03/28/18 14:35 Chief Complaint (Nursing): Back Pain Chief Complaint (Provider): Back Pain History Per: Patient History/Exam Limitations: no limitations Onset/Duration Of Symptoms: Days (6) Current Symptoms Are (Timing): Still Present Quality Of Discomfort: "Pain" Additional Complaint(s): 52 year old female presents to the ED for an evaluation of left lower side back pain onset for 6 days. The pain radiates to his buttocks. Otherwise, the patient denies injury, urinary symptoms, weakness or paresthesia. PMD: none provided Past Medical History Reviewed: Historical Data, Nursing Documentation, Vital Signs Vital Signs: Last Vital Signs Temp 98.0 F 03/28/18 14:32 Pulse 84 03/28/18 14:32 Resp 18 03/28/18 14:32 BP 113/67 03/28/18 14:32 Pulse Ox 99 03/28/18 14:32 - Medical History PMH: No Chronic Diseases Denies: Chronic Kidney Disease - Surgical History Surgical History: Appendectomy, - Family History Family History: States: Unknown Family Hx - Social History Current smoker - smoking cessation education provided: No Alcohol: None Drugs: Denies - Immunization History Hx Tetanus Toxoid Vaccination: No Hx Influenza Vaccination: No Hx Pneumococcal Vaccination: No - Home Medications Home Medications: Ambulatory Orders Medication Instructions Recorded Ibuprofen [Motrin Tab] 600 mg PO Q6 #30 tab 06/25/14 diaZEpam [Valium] 5 mg PO Q8 #12 tab 06/25/14 oxyCODONE/Acetaminophen [Percocet 1 tab PO Q4 PRN #20 tab 07/11/17 5/325 mg Tab] Cyclobenzaprine [Cyclobenzaprine 10 mg PO Q8 #12 tab 03/28/18 HCl] Naproxen [Naprosyn] 500 mg PO Q12H #20 tab 03/28/18 - Allergies Allergies/Adverse Reactions: Allergies Allergy/AdvReac Type Severity Reaction Status Date / Time No Known Allergies Allergy Unverified 03/28/18 14:31 Review of Systems ROS Statement: Except As Marked, All Systems Reviewed And Found Negative Genitourinary Female: Negative for: Dysuria, Frequency, Incontinence, Hematuria Musculoskeletal: Positive for: Back Pain Neurological: Negative for: Weakness, Other (paresthesia) Physical Exam - Reviewed Nursing Documentation Reviewed: Yes Vital Signs Reviewed: Yes - Physical Exam Appears: Positive for: Well, Non-toxic, No Acute Distress Head Exam: Positive for: ATRAUMATIC, NORMAL INSPECTION, NORMOCEPHALIC Skin: Positive for: Normal Color, Warm, Dry Eye Exam: Positive for: Normal appearance Neck: Positive for: Normal, Painless ROM Cardiovascular/Chest: Positive for: Regular Rate, Rhythm. Negative for: Murmur Respiratory: Positive for: Normal Breath Sounds. Negative for: Respiratory Distress Gastrointestinal/Abdominal: Positive for: Normal Exam, Soft Back: Positive for: Other (left parascaral tendereness; no midline spinal tenderness) Extremity: Positive for: Normal ROM. Negative for: Deformity Neurologic/Psych: Positive for: Alert, Oriented (x3). Negative for: Motor/Sensory Deficits - ECG O2 Sat by Pulse Oximetry: 99 (RA) Pulse Ox Interpretation: Normal Medical Decision Making Medical Decision Making: Time: 1511 Impression: Lower back pain. Will treat symptomatically and observe Plan: --Toradol 30mg --Valium 5mg 1817 Patient reports persistent lower back pain, XR lumbar spine ordered Scribe Attestation: Documented by Dashawn Monique, acting as a scribe for Lux Reyes MD. Provider Scribe Attestation: All medical record entries made by the Scribe were at my direction and personally dictated by me. I have reviewed the chart and agree that the record accurately reflects my personal performance of the history, physical exam, medical decision making, and the department course for this patient. I have also personally directed, reviewed, and agree with the discharge instructions and disposition. Disposition - Clinical Impression Clinical Impression: Low back pain, Radiculopathy - Patient ED Disposition Is Patient to be Admitted: No Counseled Patient/Family Regarding: Studies Performed, Diagnosis, Need For Followup, Rx Given - Disposition Referrals: John Gonzalez III, MD [Staff Provider] - Disposition: Routine/Home Disposition Time: 18:44 Condition: FAIR Prescriptions: Cyclobenzaprine [Cyclobenzaprine HCl] 10 mg PO Q8 #12 tab Naproxen [Naprosyn] 500 mg PO Q12H #20 tab Instructions: Low Back Pain in Adults, Radiculopathy (DC) Forms: [facility] [employer] (Tristanian) Print Language: GERMAN
[2018-03-28 20:07] VITALS: BP 113/75; PULSE 61; TEMP 97.9; O2SAT 96
--- NOTE | 2018-03-29 16:39 | RAD ---
Date of service: 03/28/2018 PROCEDURE: Radiographs of the Lumbar Spine. HISTORY: back pain COMPARISON: No prior. FINDINGS: BONES: Normal alignment. No listhesis. No fracture. Transitional L5 vertebral body noted. DISC SPACES: Diminished disc space at L5-S1 likely due to sacralization of L5. OTHER FINDINGS: Incidental note is made of numerous phlebolith like calcifications in the inferior pelvis soft tissues. IMPRESSION: No fracture or spondylolisthesis appreciated. Transitional L5 vertebral body noted, appearing mildly sacralized.
== END 2018-03-28 19:40 | disposition home or self-care (01) ==
LOC: H.ER 13:41
DX: M54.5 Low back pain (principal); M54.16 Radiculopathy, lumbar region
CPT/HCPCS: 72100; 96372; 99284; J1885